=== PATIENT | male | born 1985 | race Caucasian/White ===

== ENCOUNTER 2016-08-15 17:26 | Emergency (ER) | payer SELFPAY ==
[2016-08-15] MEDS ORDERED: DIPH/PERTUSS(ACELL)/TETANUS VAC/PF 0.5 ML SYR (>=10YO) IM ONE (18:04)
[2016-08-15] MEDS ORDERED: NAPROXEN 250 MG TABLET PO ONE (18:05)
[2016-08-15] MEDS ORDERED: CYCLOBENZAPRINE HCL 10 MG TABLET PO ONE (18:05)
--- NOTE | 2016-08-15 18:08 | ER Document Report ---
ED Medical Screen (RME) - General Chief Complaint: Back Injury Stated Complaint: BACK PAIN,FINGER INJURY Notes: I briefly seen and evaluated this patient in my role as physician in triage. I have initiated orders based on this initial evaluation. Please see my colleague' s documentation for complete history, physical, management, diagnosis, and ultimate disposition. My brief evaluation: Patient presents to stating that he was helping a friend lift an I-beam and his friend dropped the other and and he went down he jerked his back and indicates caught his finger between the cement and the 100 pound I-beam. Patient indicates that the bleeding was squirting at intervals and he put direct pressure on it. He was able to control it with pressure. Patient is here also for his low back which is now hurting after the injury. He is able to walk. Denies any radiation of pain into the legs. No bowel or bladder dysfunction. On exam, patient alert and oriented no acute distress vital signs are stable patient is afebrile nontoxic appearing. The left index finger has a laceration on the palmar aspect that is irregular and there is a small arterial bleeding that pumps blood once dressing is removed. Dressing was replaced and pressure applied to control bleeding. Medical decision making: Patient will have an x-ray to evaluate for possible open fracture. Further exam of ring finger is necessary as well as neuro vascular exam. Have given Naprosyn and Flexeril for back TRAVEL OUTSIDE OF THE [place] IN LAST 30 DAYS: No - Related Data Allergies/Adverse Reactions: duloxetine HCl [From Cymbalta] Allergy (Verified 03/19/16 18:01) Past Medical History - Past Medical History Cardiac Medical History: Denies: Hx Coronary Artery Disease, Hx Heart Attack, Hx Hypertension Pulmonary Medical History: Reports: Hx Pneumonia - hx of Denies: Hx Asthma, Hx Bronchitis, Hx COPD, Hx Tuberculosis Neurological Medical History: Denies: Hx Cerebrovascular Accident, Hx Seizures Renal/ Medical History: Denies: Hx Peritoneal Dialysis GI Medical History: Musculoskeltal Medical History: Reports Hx Arthritis - mild ankles and knees Psychiatric Medical History: Reports: Hx Anxiety, Hx Attention Deficit Hyperactivity Disorder, Hx Bipolar Disorder, Hx Depression Infectious Medical History: Past Surgical History: Reports: Hx Orthopedic Surgery - Left knee surgery WITH MENISCUS AND ACL REPAIR, right hand surgery. Denies: Hx Pacemaker - Immunizations Immunizations up to date: Yes Hx Diphtheria, Pertussis, Tetanus Vaccination: Yes - 2007 Physical Exam - Vital signs Vitals: Temp Pulse Resp BP Pulse Ox 99.0 F 82 17 133/78 H 98 08/15/16 17:32 08/15/16 17:32 08/15/16 17:32 08/15/16 17:32 08/15/16 17:32 Course - Vital Signs Vital signs: Temp Pulse Resp BP Pulse Ox 99.0 F 82 17 133/78 H 98 08/15/16 17:32 08/15/16 17:32 08/15/16 17:32 08/15/16 17:32 08/15/16 17:32
[2016-08-15] MEDS ORDERED: OXYCODONE-ACETAMINOPHEN 5-325 MG TABLET PO ONE (18:35)
[2016-08-15] MEDS ORDERED: HYDROCODONE/ACETAMINOPHEN 5-325 MG 6 TAB/DSPK PO PRN (19:37)
--- NOTE | 2016-08-15 19:38 | ER Document Report ---
ED General - General Chief Complaint: Back Injury Stated Complaint: BACK PAIN,FINGER INJURY Mode of Arrival: Ambulatory Information source: Patient Notes: 31-year-old male presents with complaints of back pain and finger injury just prior to arrival. Patient was lifting a heavy beam with another person, that person let go of the pain and the weight was on him, he cannot hold it and let go as well and it landed on his finger. Patient denies any other injuries admits to chronic back pain worsened by this injury TRAVEL OUTSIDE OF THE [place] IN LAST 30 DAYS: No - HPI Onset: Just prior to arrival Onset/Duration: Sudden Quality of pain: Achy Severity: Mild Pain Level: 2 Associated symptoms: Body/muscle aches Exacerbated by: Denies Relieved by: Denies Similar symptoms previously: Yes Recently seen / treated by doctor: No - Related Data Allergies/Adverse Reactions: duloxetine HCl [From Cymbalta] Allergy (Verified 03/19/16 18:01) Past Medical History - Social History Smoking Status: Current Every Day Smoker Cigarette use (# per day): Yes Chew tobacco use (# tins/day): No - 30 Smoking Education Provided: No Frequency of alcohol use: None Drug Abuse: None Family History: None Patient has suicidal ideation: No Patient has homicidal ideation: No - Past Medical History Cardiac Medical History: Denies: Hx Coronary Artery Disease, Hx Heart Attack, Hx Hypertension Pulmonary Medical History: Reports: Hx Pneumonia - hx of Denies: Hx Asthma, Hx Bronchitis, Hx COPD, Hx Tuberculosis Neurological Medical History: Denies: Hx Cerebrovascular Accident, Hx Seizures Renal/ Medical History: Denies: Hx Peritoneal Dialysis GI Medical History: Musculoskeltal Medical History: Reports Hx Arthritis - mild ankles and knees Psychiatric Medical History: Reports: Hx Anxiety, Hx Attention Deficit Hyperactivity Disorder, Hx Bipolar Disorder, Hx Depression Infectious Medical History: Past Surgical History: Reports: Hx Orthopedic Surgery - Left knee surgery WITH MENISCUS AND ACL REPAIR, right hand surgery. Denies: Hx Pacemaker - Immunizations Immunizations up to date: Yes Hx Diphtheria, Pertussis, Tetanus Vaccination: Yes - 2007 Review of Systems - Review of Systems Notes: REVIEW OF SYSTEMS: CONSTITUTIONAL : Denies fever, chills, or sweats. Denies recent illness. EENT: Denies eye, ear, throat, or mouth pain or symptoms. Denies nasal or sinus congestion or discharge. Denies throat, tongue, or mouth swelling or difficulty swallowing. CARDIOVASCULAR: Denies chest pain. Denies palpitations or racing or irregular heart beat. Denies ankle edema. RESPIRATORY: Denies cough, cold, or chest congestion. Denies shortness of breath, difficulty breathing, or wheezing. GASTROINTESTINAL: Denies abdominal pain or distention. Denies nausea, vomiting , or diarrhea. Denies blood in vomitus, stools, or per rectum. Denies black, tarry stools. Denies constipation. GENITOURINARY: Denies difficulty urinating, painful urination, burning, frequency, blood in urine, or discharge. MUSCULOSKELETAL: admits ot low back pain, left hand 4th digit pain SKIN: Denies rash, lesions or sores. HEMATOLOGIC : Denies easy bruising or bleeding. LYMPHATIC: Denies swollen, enlarged glands. NEUROLOGICAL: Denies confusion or altered mental status. Denies passing out or loss of consciousness. Denies dizziness or lightheadedness. Denies headache. Denies weakness or paralysis or loss of use of either side. Denies problems with gait or speech. Denies sensory loss, numbness, or tingling. Denies seizures. PSYCHIATRIC: Denies anxiety or stress. Denies depression, suicidal ideation, or homicidal ideation. ALL OTHER SYSTEMS REVIEWED AND NEGATIVE. Dictation was performed using [employer] English voice recognition software PHYSICAL EXAMINATION: GENERAL: Well-appearing, well-nourished and in no acute distress. HEAD: Atraumatic, normocephalic. EYES: Pupils equal round and reactive to light, extraocular movements intact, sclera anicteric, conjunctiva are normal. ENT: Nares patent, oropharynx clear without exudates. Moist mucous membranes. NECK: Normal range of motion, supple without lymphadenopathy LUNGS: Breath sounds clear to auscultation bilaterally and equal. No wheezes rales or rhonchi. HEART: Regular rate and rhythm without murmurs ABDOMEN: Soft, nontender, nondistended abdomen. No guarding, no rebound. No masses appreciated. Musculoskeletal: mild lumbar tenderness midline, no step off or deformity. echymosis with dried blood under the left hand 4th digit nail bed. NEUROLOGICAL: Cranial nerves grossly intact. Normal speech, normal gait. Normal sensory, motor exams PSYCH: Normal mood, normal affect. SKIN: Warm, Dry, normal turgor, no rashes or lesions noted. Physical Exam - Vital signs Vitals: Temp Pulse Resp BP Pulse Ox 99.0 F 82 17 133/78 H 98 08/15/16 17:32 08/15/16 17:32 08/15/16 17:32 08/15/16 17:32 08/15/16 17:32 Course - Re-evaluation Re-evalutation: 08/15/16 22:32 X-rays consistent with a tuft fracture of the fourth digit left hand, otherwise no acute abnormalities except for a nail bed injury. The nail is over and did stable at this time therefore I will not remove the nail. There is a superficial abrasion on the palmar aspect of the finger which I offered to repair but the patient wishes to defer at this time. Very strict return precautions have been provided to the patient as well as wound care instructions. CT was performed of the lumbar spine abnormality was noted. Patient has no neurological deficits consistent with cauda equina syndrome. Patient will be discharged home with pain medication close follow-up tetanus was updated After performing a Medical Screening Examination, I estimate there is LOW risk for INTRACRANIAL HEMORRHAGE, UNSTABLE SPINE FRACTURE, CENTRAL CORD SYNDROME, CAUDA EQUINA, THORACIC AORTIC DISSECTION, PNEUMOTHORAX, PERFORATED BOWEL, RUPTURED ABDOMINAL AORTIC ANEURYSM, ACUTE TENDON RUPTURE, COMPARTMENT SYNDROME, or OPEN FRACTURE, thus I consider the discharge disposition reasonable. Also, there is no evidence or peritonitis, sepsis, or toxicity. I have reevaluated this patient multiple times and no significant life threatening changes are noted. The patient and I have discussed the diagnosis and risks, and we agree with discharging home to follow-up with their primary doctor with the understanding that symptoms and presentations can change. We also discussed returning to the Emergency Department immediately if new or worsening symptoms occur. We have discussed the symptoms which are most concerning (e.g., bloody stool, fever, changing or worsening pain, vomiting) that necessitate immediate return. - Vital Signs Vital signs: Temp Pulse Resp BP Pulse Ox 99.0 F 77 18 125/77 100 08/15/16 17:32 08/15/16 19:52 08/15/16 19:52 08/15/16 19:52 08/15/16 19:52 - Diagnostic Test Radiology reviewed: Image reviewed, Reports reviewed Discharge - Discharge Clinical Impression: Nailbed injury Closed fracture of tuft of distal phalanx of finger Qualifiers: Encounter type: initial encounter Qualified Code(s): S62.639A - Displaced fracture of distal phalanx of unspecified finger, initial encounter for closed fracture Low back strain Qualifiers: Encounter type: initial encounter Qualified Code(s): S39.012A - Strain of muscle, fascia and tendon of lower back, initial encounter Condition: Stable Disposition: HOME, SELF-CARE Additional Instructions: Return immediately if there is any sign of infection or any neurological deficits Prescriptions: Oxycodone HCl/Acetaminophen [Percocet 5-325 mg Tablet] 1 - 2 tab PO Q4H PRN #15 tablet PRN Reason: Forms: Return to Work Referrals: [facility] [Primary Care Provider] - Follow up in 3-5 days
[2016-08-15 19:53] VITALS: BP 125/77
== END 2016-08-15 19:53 | disposition home or self-care (01) ==
LOC: ER 17:26
DX: S39.012A Strain of muscle, fascia and tendon of lower back, initial encounter (principal); S62.639A Displaced fracture of distal phalanx of unspecified finger, initial encounter for closed fracture; S69.92XA Unspecified injury of left wrist, hand and finger(s), initial encounter; M79.1 Myalgia; W22.8XXA Striking against or struck by other objects, initial encounter; F17.210 Nicotine dependence, cigarettes, uncomplicated; Z23 Encounter for immunization
CPT/HCPCS: 72131; 90471; 90715; 99284

== ENCOUNTER 2016-11-08 12:18 | Emergency (ER) | payer SELFPAY ==
[2016-11-08] MEDS ORDERED: DEXAMETHASONE SOD PHOS INJ 10 MG/1 ML VIAL IM ONE (12:48)
--- NOTE | 2016-11-08 12:51 | ER Document Report ---
HPI - HPI Pain Level: 4 Notes: Patient is a 31-year-old male who presents to the ED complaining of left knee pain 3 weeks status post injury reported to be hyperextension. Patient states that he has had chronic issues with his left knee as well and he has had 2 previous arthroscopic surgeries. Patient states that because of his left knee pain he reaggravated his low back pain left greater than the right side. Patient states that his back problems and occasional sharp pains without any numbness or tingling. The pain does not radiate any other places. He has been using [id number] meds with minimal relief. Patient states that he has been working extra shifts lately and he works as a cook and standing during each shift. Standing makes the pain worse. Patient is not sure of any other position that improves his symptoms. Denies any loss of control of bowel or bladder. Patient still eating and drink without any problems. Patient smokes cigarettes daily. Denies any other illicit drug use. And states he has allergies to Cymbalta and Vicodin. He does not have a PCM. No other significant past medical history per patient. Denies any fever, URI, sore throat, cp, palp, syncope, cough, wheeze, sob, dyspnea, abd pain, n/v/d/c, dysuria, urinary retention, hematuria, muscle weakness/paralysis, or rash. - ROS Notes: REVIEW OF SYSTEMS: CONSTITUTIONAL : Denies fever, chills, or sweats. Denies recent illness. EENT: Denies eye, ear, throat, or mouth pain or symptoms. Denies nasal or sinus congestion or discharge. Denies throat, tongue, or mouth swelling or difficulty swallowing. CARDIOVASCULAR: Denies chest pain. Denies palpitations or racing or irregular heart beat. Denies ankle edema. RESPIRATORY: Denies cough, cold, or chest congestion. Denies shortness of breath, difficulty breathing, or wheezing. GASTROINTESTINAL: Denies abdominal pain or distention. Denies nausea, vomiting , or diarrhea. Denies blood in vomitus, stools, or per rectum. Denies black, tarry stools. Denies constipation. GENITOURINARY: Denies difficulty urinating, painful urination, burning, frequency, blood in urine, or discharge. MUSCULOSKELETAL: Denies back or neck pain or stiffness. Denies joint pain or swelling. SKIN: Denies rash, lesions or sores. NEUROLOGICAL: Denies confusion or altered mental status. Denies passing out or loss of consciousness. Denies dizziness or lightheadedness. Denies headache. Denies weakness or paralysis or loss of use of either side. Denies problems with gait or speech. Denies sensory loss, numbness, or tingling. Denies seizures. ALL OTHER SYSTEMS REVIEWED AND NEGATIVE. Dictation was performed using [employer] voice recognition software - REPRODUCTIVE Reproductive: DENIES: : - DERM Skin Color: Normal Past Medical History - Social History Smoking Status: Current Every Day Smoker Family History: None Patient has suicidal ideation: No Patient has homicidal ideation: No - Past Medical History Cardiac Medical History: Denies: Hx Coronary Artery Disease, Hx Heart Attack, Hx Hypertension Pulmonary Medical History: Reports: Hx Pneumonia - hx of Denies: Hx Asthma, Hx Bronchitis, Hx COPD, Hx Tuberculosis Neurological Medical History: Denies: Hx Cerebrovascular Accident, Hx Seizures Renal/ Medical History: Denies: Hx Peritoneal Dialysis GI Medical History: Musculoskeltal Medical History: Reports Hx Arthritis - mild ankles and knees Psychiatric Medical History: Reports: Hx Anxiety, Hx Attention Deficit Hyperactivity Disorder, Hx Bipolar Disorder, Hx Depression Infectious Medical History: Past Surgical History: Reports: Hx Orthopedic Surgery - Left knee surgery WITH MENISCUS AND ACL REPAIR, right hand surgery. Denies: Hx Pacemaker - Immunizations Immunizations up to date: Yes Hx Diphtheria, Pertussis, Tetanus Vaccination: Yes - 2007 [facility] Provider Document - CONSTITUTIONAL Notes: PHYSICAL EXAMINATION: GENERAL: Well-appearing, well-nourished and in no acute distress. NECK: Normal range of motion, supple without lymphadenopathy. No rigidity. LUNGS: Breath sounds clear to auscultation bilaterally and equal. No wheezes rales or rhonchi. HEART: Regular rate and rhythm without murmurs, rubs, gallops. ABDOMEN: Soft, nontender, nondistended abdomen. No guarding, no rebound. No masses appreciated. Normal bowel sounds present. No CVA tenderness bilaterally. No pulsatile mass. Musculoskeletal: LE's b/l: FROM to passive/active. Strength 5+/5. SLR negative b/l. Knee: No ecchymosis, abrasion laceration, swelling, or deformity noted. + mild tenderness to patellar tendon. neg apprehension, grind, [place]. Ligamentous stable. Extremities: No cyanosis, clubbing, or edema b/l. Peripheral pulses 2+. Capillary refill less than 3 seconds. NEUROLOGICAL: Normal gait. Normal sensory, motor exams. PSYCH: Normal mood, normal affect. SKIN: Warm, Dry, normal turgor, no rashes or lesions noted. - INFECTION CONTROL TRAVEL OUTSIDE OF THE [place] IN LAST 30 DAYS: No - RESPIRATORY O2 Sat by Pulse Oximetry: 96 Course - Re-evaluation Re-evalutation: 11/08/16 13:45 Patient is an afebrile, well-hydrated, 31-year-old male presents the ED complaining of acute on chronic left knee pain and chronic low back pain, suspect possible patellar tendonitis/bursitis. Knee XR negative. Vitals are stable. PE otherwise unremarkable for any focal neurological deficits. Low health risk factors for any emergent/urgent back pain. Low suspicion for any AAA, cauda equina, epidural mass lesion, severe disk herniation causing spinal stenosis based on H&P today. Decadron 10mg given IM today. Lidoderm patch placed today. I will send him home with a script for voltaren gel. Conservative measures otherwise for symptoms. Establish/recheck with PCM in 2- 3 days. Return to the ED with any worsening/concerning symptoms otherwise as reviewed. electric utility lineworker consult placed to help patient with PCM and insurance issues. Patient is in agreement. - Vital Signs Vital signs: Temp Pulse Resp BP Pulse Ox 98.4 F 93 14 122/79 96 11/08/16 12:23 11/08/16 12:23 11/08/16 12:23 11/08/16 12:23 11/08/16 12:23 Discharge - Discharge Clinical Impression: Left knee pain Qualifiers: Chronicity: unspecified Qualified Code(s): M25.562 - Pain in left knee Chronic low back pain Qualifiers: Back pain laterality: left Sciatica presence: without sciatica Qualified Code(s ): M54.5 - Low back pain Condition: Stable Disposition: HOME, SELF-CARE Instructions: Ice Packs ([facility]), Warm Packs ([facility]), Low Back Pain ([facility]), Muscle Strain ([facility]) Additional Instructions: Rest, Ice, Compression, Elevation Tylenol/ibuprofen as needed Light stretches daily Use medication as directed Strength exercises as able Moist heat and massage may help F/u with your PCP/establish in 2-3 days for a recheck Consider consult(s) with Orthopedics, physical therapy, pain management, chiropractics for ongoing/worsening symptoms Return to the ED with any worsening symptoms and/or development of fever, headache, chest pain, palpitations, syncope, shortness of breath, trouble breathing, abdominal pain, n/v/d, blood in stool/urine, urinary retention, muscle weakness/paralysis, or other worsening symptoms that are concerning to you. Prescriptions: Diclofenac Sodium [Voltaren] 4 gm TP QID PRN #100 gel..gm. PRN Reason: Forms: Return to Work
[2016-11-08] MEDS ORDERED: LIDOCAINE 5% (700 MG) TRANSDERMAL ADH..PATCH TP ONE (13:00)
[2016-11-08] MEDS ORDERED: KETOROLAC TROMETHAMINE INJ/PF 30 MG/1 ML SDV IM ONE (13:15)
--- NOTE | 2016-11-08 13:31 | RADIOLOGY REPORT (SQ) ---
EXAM DESCRIPTION: KNEE LEFT 4 VIEW COMPLETED DATE/TIME: 11/08/2016 1:08 pm REASON FOR STUDY: left knee pain COMPARISON: None. NUMBER OF VIEWS: Four views. TECHNIQUE: AP, lateral, and both oblique radiographic images acquired of the left knee. LIMITATIONS: None. FINDINGS: MINERALIZATION: Normal. BONES: No acute fracture or dislocation. No worrisome bone lesions. Postsurgical changes are identi fied related to an ACL repair. JOINT: No effusion. SOFT TISSUES: No soft tissue swelling. No radio-opaque foreign body. OTHER: No other significant finding. IMPRESSION: NO RADIOGRAPHIC EVIDENCE OF ACUTE INJURY. Other findings as noted above. TECHNICAL DOCUMENTATION: JOB ID: [id number] [employer]- All Rights Reserved
[2016-11-08 13:54] VITALS: BP 112/68
== END 2016-11-08 13:54 | disposition home or self-care (01) ==
LOC: ER 12:18
DX: M25.562 Pain in left knee (principal); M54.5 Low back pain; G89.29 Other chronic pain; Z98.890 Other specified postprocedural states; F17.210 Nicotine dependence, cigarettes, uncomplicated; Z88.5 Allergy status to narcotic agent; Z88.6 Allergy status to analgesic agent
CPT/HCPCS: 99283; 96372; 73562; J1885; J1100

== ENCOUNTER 2017-06-14 17:50 | Emergency (ER) | payer SELFPAY ==
--- NOTE | 2017-06-14 18:10 | ER Document Report ---
HPI - HPI Patient complains to provider of: Headache, runny nose, nausea and vomiting Onset: Last week Onset/Duration: Persistent Pain Level: 4 Context: 31-year-old male complaining of a dual onset throbbing frontal migraine headache , runny nose, nausea and vomiting, with chills and sweats this week, generalized bodyaches, dizzy, was in bed for 2 days. He states he is under a lot of stress. No chest pain or shortness of breath. No abdominal pain. No diarrhea. No rash. No travel outside us, no tick bite. Associated Symptoms: None Exacerbated by: Other - light, sound Similar symptoms previously: Yes Recently seen / treated by doctor: No - ROS ROS below otherwise negative: Yes Systems Reviewed and Negative: Yes All other systems reviewed and negative - REPRODUCTIVE Reproductive: DENIES: : Past Medical History - General Information source: Patient - Social History Smoking Status: Current Every Day Smoker Frequency of alcohol use: None Drug Abuse: Marijuana Lives with: Family Family History: None - Past Medical History Cardiac Medical History: Reports: Hx Coronary Artery Disease, Hx Heart Attack, Hx Hypercholesterolemia, Hx Hypertension Pulmonary Medical History: Reports: Hx Pneumonia - hx of Neurological Medical History: Reports: Hx Migraine Renal/ Medical History: Denies: Hx Peritoneal Dialysis GI Medical History: Musculoskeltal Medical History: Reports Hx Arthritis - mild ankles and knees Psychiatric Medical History: Reports: Hx Anxiety, Hx Attention Deficit Hyperactivity Disorder, Hx Bipolar Disorder, Hx Depression Infectious Medical History: Past Surgical History: Reports: Hx Orthopedic Surgery - Left knee surgery WITH MENISCUS AND ACL REPAIR, right hand surgery - Immunizations Immunizations up to date: Yes Hx Diphtheria, Pertussis, Tetanus Vaccination: Yes - 2007 [employer] Provider Document - CONSTITUTIONAL Agree With Documented VS: Yes Exam Limitations: No Limitations - INFECTION CONTROL TRAVEL OUTSIDE OF THE [place] IN LAST 30 DAYS: No - HEENT HEENT: PERRLA, Pharyngeal Erythema - mild. negative: Conjuctival Injection, Tympanic Membrane Red, Tympanic Membrane Bulging - NECK Neck: Supple. negative: Lymphadenopathy-Left, Lymphadenopathy-Right - RESPIRATORY Respiratory: Breath Sounds Normal, No Respiratory Distress O2 Sat by Pulse Oximetry: 97 - CARDIOVASCULAR Cardiovascular: Regular Rate, Regular Rhythm - GI/ABDOMEN Gastrointestinal: Abdomen Soft, Abdomen Non-Tender, No Organomegaly, Normal Bowel Sounds - BACK Back: Normal Inspection - MUSCULOSKELETAL/EXTREMETIES Musculoskeletal/Extremeties: JOHANNA BARRIOS - NEURO Level of Consciousness: Awake, Alert, Appropriate - DERM Integumentary: Warm, Dry, No Rash Course - Re-evaluation Re-evalutation: 06/14/17 19:35 Headache is down to level 3 and he has had 2 L of fluid, no vomiting while in the emergency room. He does states that he has been under a lot of stress recently. 06/14/17 19:47 headache down to 2.5, can get ride home. Feels better but still a little dizzy. - Vital Signs Vital signs: Temp Pulse Resp BP Pulse Ox 98.9 F 86 18 140/76 H 97 06/14/17 18:02 06/14/17 18:02 06/14/17 18:02 06/14/17 18:02 06/14/17 18:02 Discharge - Discharge Clinical Impression: Myalgia Headache Qualifiers: Headache type: unspecified Headache chronicity pattern: acute headache Intractability: not intractable Qualified Code(s): R51 - Headache Nausea & vomiting Qualifiers: Vomiting type: unspecified Vomiting Intractability: non-intractable Qualified Code(s): R11.2 - Nausea with vomiting, unspecified Arthralgia Qualifiers: Joint pain location: unspecified Qualified Code(s): M25.50 - Pain in unspecified joint Condition: Good Disposition: HOME, SELF-CARE Instructions: Vomiting ([facility]), Intravenous (IV) Fluids ([facility]), Acetaminophen, Headache ([facility]), Intravenous Compazine for Headaches ([facility]), Use of Diphenhydramine Additional Instructions: see your doctor if the symptoms persist Return to the emergency room if symptoms worsen Tylenol Rest Plenty of fluids [id number] Motrin Forms: Return to Work
[2017-06-14] MEDS ORDERED: PROCHLORPERAZINE EDISYLATE INJ 10 MG/2 ML VIAL IM ONE (18:28)
[2017-06-14] MEDS ORDERED: NORMAL SALINE 1000 ML 2,000 ML IV ONE (18:28)
[2017-06-14] MEDS ORDERED: DIPHENHYDRAMINE HCL 50 MG/ML VIAL IV ONE (18:28)
[2017-06-14] MEDS ORDERED: KETOROLAC TROMETHAMINE INJ/PF 30 MG/1 ML SDV IV ONE (18:28)
[2017-06-14 20:04] VITALS: BP 113/68
== END 2017-06-14 20:05 | disposition home or self-care (01) ==
LOC: ER 17:50
DX: G43.909 Migraine, unspecified, not intractable, without status migrainosus (principal); R11.2 Nausea with vomiting, unspecified; M79.1 Myalgia; M25.50 Pain in unspecified joint; R09.89 Other specified symptoms and signs involving the circulatory and respiratory systems; R61 Generalized hyperhidrosis; R68.83 Chills (without fever); R42 Dizziness and giddiness; F17.200 Nicotine dependence, unspecified, uncomplicated; I25.10 Atherosclerotic heart disease of native coronary artery without angina pectoris; I10 Essential (primary) hypertension; I25.2 Old myocardial infarction; Z87.01 Personal history of pneumonia (recurrent)
CPT/HCPCS: 99284; 96361; 96374; 96375; J1200; J1885; J0780; J7030

== ENCOUNTER 2017-06-17 08:52 | Emergency (ER) | payer SELFPAY ==
--- NOTE | 2017-06-17 10:23 | ER Document Report ---
ED General - General Chief Complaint: Pain All Over Stated Complaint: HEADACHE,VOMITING Time Seen by Provider: 06/17/17 10:12 Mode of Arrival: Ambulatory Information source: Patient Notes: Patient was recently here and diagnosed with a viral syndrome. He states he continues to have cough sore throat, body aches, headache, insomnia. No fevers. Cough is occasionally productive of some yellow-green sputum. Symptoms are worse with exertion and better with rest. They are moderate. They are intermittent. Body aches radiate throughout his body. TRAVEL OUTSIDE OF THE [place] IN LAST 30 DAYS: No - Related Data Allergies/Adverse Reactions: duloxetine HCl [From Cymbalta] Allergy (Verified 06/17/17 08:54) Past Medical History - Social History Smoking Status: Current Every Day Smoker Chew tobacco use (# tins/day): No Frequency of alcohol use: Occasional Drug Abuse: Marijuana Family History: None Patient has suicidal ideation: No Patient has homicidal ideation: No - Past Medical History Cardiac Medical History: Reports: Hx Coronary Artery Disease, Hx Heart Attack, Hx Hypercholesterolemia, Hx Hypertension Pulmonary Medical History: Reports: Hx Pneumonia - hx of Denies: Hx Asthma, Hx Bronchitis, Hx COPD, Hx Tuberculosis Neurological Medical History: Reports: Hx Migraine. Denies: Hx Cerebrovascular Accident, Hx Seizures Renal/ Medical History: Denies: Hx Peritoneal Dialysis GI Medical History: Musculoskeltal Medical History: Reports Hx Arthritis - mild ankles and knees Psychiatric Medical History: Reports: Hx Anxiety, Hx Attention Deficit Hyperactivity Disorder, Hx Bipolar Disorder, Hx Depression Infectious Medical History: Past Surgical History: Reports: Hx Orthopedic Surgery - Left knee surgery WITH MENISCUS AND ACL REPAIR, right hand surgery. Denies: Hx Pacemaker - Immunizations Immunizations up to date: Yes Hx Diphtheria, Pertussis, Tetanus Vaccination: Yes - 2007 Review of Systems - Review of Systems Constitutional: Malaise, Weakness EENT: Nose congestion, Nose discharge Respiratory: Cough. denies: Short of breath Physical Exam - Vital signs Vitals: Temp Pulse Resp BP Pulse Ox 98.7 F 77 16 136/78 H 100 06/17/17 08:59 06/17/17 08:59 06/17/17 08:59 06/17/17 08:59 06/17/17 08:59 Interpretation: Normal - General General appearance: Appears well, Alert - HEENT Head: Normocephalic, Atraumatic Eyes: Normal Pupils: PERRL - Respiratory Respiratory status: No respiratory distress Chest status: Nontender Breath sounds: Normal Chest palpation: Normal - Cardiovascular Rhythm: Regular Heart sounds: Normal auscultation Murmur: No - Abdominal Inspection: Normal Distension: No distension Bowel sounds: Normal Tenderness: Nontender Organomegaly: No organomegaly - Back Back: Normal, Nontender - Extremities General upper extremity: Normal inspection, Nontender, Normal color, Normal ROM , Normal temperature General lower extremity: Normal inspection, Nontender, Normal color, Normal ROM , Normal temperature, Normal weight bearing. No: Gavin's sign - Neurological Neuro grossly intact: Yes Cognition: Normal Orientation: AAOx4 [place]asper Coma Scale Eye Opening: Spontaneous Kandy Coma Scale Verbal: Oriented Kandy Coma Scale Motor: Obeys Commands Kandy Coma Scale Total: 15 Speech: Normal Motor strength normal: LUE, RUE, LLE, RLE Sensory: Normal - Psychological Associated symptoms: Normal affect, Normal mood - Skin Skin Temperature: Warm Skin Moisture: Dry Skin Color: Normal Course - Vital Signs Vital signs: Temp Pulse Resp BP Pulse Ox 98.7 F 77 16 136/78 H 100 06/17/17 08:59 06/17/17 08:59 06/17/17 08:59 06/17/17 08:59 06/17/17 08:59 Discharge - Discharge Clinical Impression: Viral syndrome Condition: Stable Disposition: HOME, SELF-CARE Instructions: Viral Syndrome ([facility]) Additional Instructions: most viral syndromes are contagious for seven days so it is recommended you take contact precautions for seven days from first day of illness Prescriptions: Codeine/Promethazine HCl [Promethazine-Codeine Syrup] 10 ml PO Q4 PRN 3 Days #1 bottle PRN Reason: Forms: Return to Work
[2017-06-17 10:34] VITALS: BP 135/75
== END 2017-06-17 10:34 | disposition home or self-care (01) ==
LOC: ER 08:52
DX: B34.9 Viral infection, unspecified (principal); M79.1 Myalgia; R53.81 Other malaise; F17.200 Nicotine dependence, unspecified, uncomplicated; I25.10 Atherosclerotic heart disease of native coronary artery without angina pectoris; E78.00 Pure hypercholesterolemia, unspecified; I10 Essential (primary) hypertension; I25.2 Old myocardial infarction
CPT/HCPCS: 99284

== ENCOUNTER 2017-10-03 11:51 | Emergency (ER) | payer MEDICAID ==
[2017-10-03] MEDS ORDERED: KETOROLAC TROMETHAMINE INJ/PF 30 MG/1 ML SDV IV ONE (12:06)
[2017-10-03] MEDS ORDERED: NORMAL SALINE 1000 ML 1,000 ML IV ONE (12:06)
[2017-10-03] MEDS ORDERED: PROCHLORPERAZINE EDISYLATE INJ 10 MG/2 ML VIAL IV ONE (12:06)
[2017-10-03] MEDS ORDERED: DIPHENHYDRAMINE HCL 50 MG/ML VIAL IV ONE (12:06)
--- NOTE | 2017-10-03 12:10 | ER Document Report ---
ED General - General Chief Complaint: Headache Stated Complaint: HEADACHE,VOMITING Time Seen by Provider: 10/03/17 12:02 Mode of Arrival: Ambulatory Information source: Patient Notes: 32-year-old male history of migraine headaches presents with complaints of a migraine headache, he states this is similar to his previous migraines, notes he was here about 4 months ago with similar complaints, he denies any fevers or chills denies any trauma, he believes stress is causing his symptoms and that he has been vomiting with these episodes. Patient does not have a neurologist, notes that his left and that he is taking care of her 3 sons by himself TRAVEL OUTSIDE OF THE [place] IN LAST 30 DAYS: No - HPI Onset: Other - 3 day duration Onset/Duration: Persistent Quality of pain: Achy Severity: Mild Pain Level: 1 Associated symptoms: Headache, Nausea, Vomiting Exacerbated by: Other - Stress Relieved by: Denies Similar symptoms previously: Yes Recently seen / treated by doctor: Yes - Related Data Allergies/Adverse Reactions: duloxetine HCl [From Cymbalta] Allergy (Verified 10/03/17 12:06) Past Medical History - Social History Smoking Status: Current Every Day Smoker Cigarette use (# per day): Yes Chew tobacco use (# tins/day): No Smoking Education Provided: No Frequency of alcohol use: Rare Drug Abuse: None Family History: None Patient has suicidal ideation: No Patient has homicidal ideation: No - Past Medical History Cardiac Medical History: Reports: Hx Coronary Artery Disease, Hx Heart Attack, Hx Hypercholesterolemia, Hx Hypertension Pulmonary Medical History: Reports: Hx Pneumonia - hx of Denies: Hx Asthma, Hx Bronchitis, Hx COPD, Hx Tuberculosis Neurological Medical History: Reports: Hx Migraine. Denies: Hx Cerebrovascular Accident, Hx Seizures Renal/ Medical History: Denies: Hx Peritoneal Dialysis GI Medical History: Musculoskeltal Medical History: Reports Hx Arthritis - mild ankles and knees Psychiatric Medical History: Reports: Hx Anxiety, Hx Attention Deficit Hyperactivity Disorder, Hx Bipolar Disorder, Hx Depression Infectious Medical History: Past Surgical History: Reports: Hx Orthopedic Surgery - Left knee surgery WITH MENISCUS AND ACL REPAIR, right hand surgery. Denies: Hx Pacemaker - Immunizations Immunizations up to date: Yes Hx Diphtheria, Pertussis, Tetanus Vaccination: Yes - 2007 Review of Systems - Review of Systems Notes: REVIEW OF SYSTEMS: CONSTITUTIONAL : Denies fever, chills, or sweats. Denies recent illness. EENT: Denies eye, ear, throat, or mouth pain or symptoms. Denies nasal or sinus congestion or discharge. Denies throat, tongue, or mouth swelling or difficulty swallowing. CARDIOVASCULAR: Denies chest pain. Denies palpitations or racing or irregular heart beat. Denies ankle edema. RESPIRATORY: Denies cough, cold, or chest congestion. Denies shortness of breath, difficulty breathing, or wheezing. GASTROINTESTINAL: Admits nausea vomiting GENITOURINARY: Denies difficulty urinating, painful urination, burning, frequency, blood in urine, or discharge. MUSCULOSKELETAL: Denies back or neck pain or stiffness. Denies joint pain or swelling. SKIN: Denies rash, lesions or sores. HEMATOLOGIC : Denies easy bruising or bleeding. LYMPHATIC: Denies swollen, enlarged glands. NEUROLOGICAL: Admits to headache PSYCHIATRIC: Denies anxiety or stress. Denies depression, suicidal ideation, or homicidal ideation. ALL OTHER SYSTEMS REVIEWED AND NEGATIVE. Dictation was performed using makemoji voice recognition software PHYSICAL EXAMINATION: GENERAL: Well-appearing, well-nourished and in no acute distress. HEAD: Atraumatic, normocephalic. EYES: Pupils equal round and reactive to light, extraocular movements intact, sclera anicteric, conjunctiva are normal. ENT: Nares patent, oropharynx clear without exudates. Moist mucous membranes. NECK: Normal range of motion, supple without lymphadenopathy LUNGS: Breath sounds clear to auscultation bilaterally and equal. No wheezes rales or rhonchi. HEART: Regular rate and rhythm without murmurs ABDOMEN: Soft, nontender, nondistended abdomen. No guarding, no rebound. No masses appreciated. Musculoskeletal: Normal range of motion, no pitting or edema. No cyanosis. NEUROLOGICAL: Cranial nerves grossly intact. Normal speech, normal gait. Normal sensory, motor exams PSYCH: Normal mood, normal affect. SKIN: Warm, Dry, normal turgor, no rashes or lesions noted. Physical Exam - Vital signs Vitals: Temp Pulse Resp BP Pulse Ox 98.7 F 75 16 117/78 97 10/03/17 11:58 10/03/17 11:58 10/03/17 11:58 10/03/17 11:58 10/03/17 11:58 Course - Re-evaluation Re-evalutation: 10/03/17 12:09 Patient is neurologically intact, has no new sudden onset headache, this is an acute exacerbation of his chronic migraines, overall patient will be treated symptomatically and will be given neurology follow-up 10/03/17 13:38 Patient notes headache has since resolved, he will be given neurology follow-up is otherwise stable well-appearing no distress After performing a Medical Screening Examination, I estimate there is LOW risk for ACUTE GLAUCOMA, TEMPORAL ARTERITIS, MENINGITIS, INCRANIAL HEMORRHAGE, or ISCHEMIC STROKE thus I consider the discharge disposition reasonable. I have reevaluated this patient multiple times and no significant life threatening changes are noted. The patient and I have discussed the diagnosis and risks, and we agree with discharging home with close follow-up with the understanding that symptoms and presentations can change. We also discussed returning to the Emergency Department immediately if new or worsening symptoms occur. We have discussed the symptoms which are most concerning (e.g., changing or worsening symptoms, new numbness or weakness, vomiting, fever) that necessitate immediate return. - Vital Signs Vital signs: Temp Pulse Resp BP Pulse Ox 98.7 F 75 16 117/78 97 10/03/17 11:58 10/03/17 11:58 10/03/17 11:58 10/03/17 11:58 10/03/17 11:58 Discharge - Discharge Clinical Impression: Headache Qualifiers: Headache type: other headache syndrome Qualified Code(s): G44.89 - Other headache syndrome Condition: Stable Disposition: HOME, SELF-CARE Instructions: Headache ([facility]) Forms: Return to Work Referrals: ALEXA DESAI MD [NO LOCAL MD] - Follow up tomorrow
[2017-10-03 13:55] VITALS: BP 120/62
== END 2017-10-03 13:55 | disposition home or self-care (01) ==
LOC: ER 11:51
DX: G44.89 Other headache syndrome (principal); R11.2 Nausea with vomiting, unspecified; F17.210 Nicotine dependence, cigarettes, uncomplicated; I25.10 Atherosclerotic heart disease of native coronary artery without angina pectoris; I25.2 Old myocardial infarction; I10 Essential (primary) hypertension; Z88.6 Allergy status to analgesic agent
CPT/HCPCS: 99284; 96361; 96374; 96375; J1200; J1885; J0780; J7030

== ENCOUNTER 2018-05-06 20:18 | Emergency (ER) | payer MEDICAID ==
[2018-05-06] MEDS ORDERED: ATROPINE SULFATE INJ 1 MG/10 ML DISP.SYRIN IV ONE (20:55)
[2018-05-06] MEDS ORDERED: LORAZEPAM INJ 2 MG/1 ML VIAL IV ONE (20:56)
--- NOTE | 2018-05-06 21:02 | ER Document Report ---
ED General - General Chief Complaint: Overdose Stated Complaint: POSSIBLE OVERDOSE Time Seen by Provider: 05/06/18 20:41 TRAVEL OUTSIDE OF THE [place] IN LAST 30 DAYS: No - HPI Notes: Patient is a 32-year-old male that presents to the emergency department for chief complaint of methamphetamine abuse. Patient has a history of polysubstance abuse including methamphetamine, marijuana, ecstasy, Percocet, Adderall and crack cocaine. He states for the last 3 days he stopped taking his medications for anxiety and depression and began "going on a sapp" of methamphetamine. He states this was the first time he had used methamphetamine. He states he does feel very anxious. He reports dry eyes. He states he feels like he is having to remind himself to take a deep breath. He denies any chest pain, fevers, chills, nausea, vomiting and abdominal pain. Patient states he does have a history of suicide ideation in the past but he adamantly denies feeling suicidal now. He states he takes the drugs to "numb myself". He denies any homicidal ideation. Past Medical History: Anxiety, depression Past Surgical History: Negative left ACL and meniscus repair Social History: Daily tobacco, occasional alcohol, abuse of methamphetamine, crack cocaine, Adderall, Percocet, marijuana and ecstasy Family History: Reviewed and noncontributory for presenting illness Allergies: Reviewed, see documented allergy list. REVIEW OF SYSTEMS: CONSTITUTIONAL : No fever No chills No diaphoresis No recent illness EENT: No vision changes Dry eyes No congestion No sore throat CARDIOVASCULAR: No chest pain No palpitations RESPIRATORY: shortness of breath No cough No difficulty breathing GASTROINTESTINAL: No abdominal pain No nausea No vomiting No diarrhea GENITOURINARY: No dysuria No hematuria No difficulty urinating MUSCULOSKELETAL: No back pain No leg pain No arm pain SKIN: No rashes No lesions LYMPHATIC: No swollen, enlarged glands. NEUROLOGICAL: No lightheadedness No headache No weakness No paresthesias PSYCHIATRIC: anxiety No depression PHYSICAL EXAMINATION: Vital signs reviewed, nursing noted reviewed. GENERAL: Well-appearing, well-nourished and in no acute distress. HEAD: Atraumatic, normocephalic. EYES: Eyes appear normal, extraocular movements intact, sclera anicteric, conjunctiva are injected bilaterally. ENT: nares patent, oropharynx clear without exudates. Moist mucous membranes. NECK: Normal range of motion, supple without lymphadenopathy LUNGS: Breath sounds clear to auscultation bilaterally and equal. No wheezes rales or rhonchi. HEART: Regular rate and rhythm without murmurs ABDOMEN: Soft, nontender, normoactive bowel sounds. No rebound, guarding, or rigidity. No masses appreciated. EXTREMITIES: Nontender, good range of motion, no pitting or edema. NEUROLOGICAL: No focal neurological deficits. Moves all extremities spontaneously Motor and sensory grossly intact on exam. PSYCH: Hyperactive, rapid pressured speech, fidgeting. SKIN: Warm, Dry, normal turgor, no rashes or lesions noted on exposed skin - Related Data Allergies/Adverse Reactions: duloxetine HCl [From Cymbalta] Allergy (Verified 10/03/17 12:06) Past Medical History - Social History Smoking Status: Current Every Day Smoker Chew tobacco use (# tins/day): No Frequency of alcohol use: Social Drug Abuse: Cocaine, Methamphetamine Family History: None Patient has suicidal ideation: No Patient has homicidal ideation: No - Past Medical History Cardiac Medical History: Reports: Hx Coronary Artery Disease, Hx Heart Attack, Hx Hypercholesterolemia, Hx Hypertension Pulmonary Medical History: Reports: Hx Pneumonia - hx of Denies: Hx Asthma, Hx Bronchitis, Hx COPD, Hx Tuberculosis Neurological Medical History: Reports: Hx Migraine. Denies: Hx Cerebrovascular Accident, Hx Seizures Renal/ Medical History: Denies: Hx Peritoneal Dialysis GI Medical History: Musculoskeletal Medical History: Reports Hx Arthritis - mild ankles and knees Psychiatric Medical History: Reports: Hx Anxiety, Hx Attention Deficit Hyp eractivity Disorder, Hx Bipolar Disorder, Hx Depression Infectious Medical History: Past Surgical History: Reports: Hx Orthopedic Surgery - Left knee surgery WITH MENISCUS AND ACL REPAIR, right hand surgery. Denies: Hx Pacemaker - Immunizations Immunizations up to date: Yes Hx Diphtheria, Pertussis, Tetanus Vaccination: Yes - 2007 Physical Exam - Vital signs Vitals: Temp Pulse Resp BP Pulse Ox 99.3 F 94 20 134/85 H 94 05/06/18 20:23 05/06/18 20:23 05/06/18 20:23 05/06/18 20:23 05/06/18 20:23 Course - Re-evaluation Re-evalutation: 05/06/18 20:58 Vitals reviewed. Nursing notes reviewed. Patient appears high on methamphetamine and is very anxious and twitching in the room. He was given Ativan for symptomatic management. EKG shows no acute ischemic changes. He is not having any chest pain. Patient's nurse just came over and informed me that after patient's mom left the room he told her that he was trying to commit suicide. He states that he wanted to go to sleep and never wake up again. IVC petition has been filled out. Patient will be medically evaluated with the plan of medical clearance for psych evaluation in the morning. 05/06/18 22:20 Laboratory 05/06/18 05/06/18 05/06/18 20:55 20:55 20:55 WBC 8.2 RBC 5.10 Hgb 15.4 Hct 44.1 MCV 87 MCH 30.3 MCHC 35.0 RDW 13.7 Plt Count 152 Seg Neutrophils % 74.5 Lymphocytes % 15.3 Monocytes % 8.9 Eosinophils % 1.1 Basophils % 0.2 Absolute Neutrophils 6.1 Absolute Lymphocytes 1.3 Absolute Monocytes 0.7 Absolute Eosinophils 0.1 Absolute Basophils 0.0 Sodium 140.3 Potassium 4.2 Chloride 101 Carbon Dioxide 30 Anion Gap 9 BUN 13 Creatinine 0.99 Est GFR ( Amer) > 60 Est GFR (Non-Af Amer) > 60 Glucose 104 Calcium 9.8 Total Bilirubin 1.7 H Direct Bilirubin 0.2 Neonat Total Bilirubin Not Reportable Neonat Direct Bilirubin Not Reportable Neonat Indirect Bili Not Reportable AST 17 ALT 21 Alkaline Phosphatase 52 Troponin I < 0.012 Total Protein 6.8 Albumin 4.6 Salicylates < 1.0 L Acetaminophen < 10 L Serum Alcohol < 10 Patient's lab work is unremarkable. He is now complaining of a headache and was given Tylenol. He is medically cleared for further psych care in the morning when he is more sober. - Vital Signs Vital signs: Temp Pulse Resp BP Pulse Ox 99.6 F 94 17 142/90 H 100 05/06/18 20:55 05/06/18 20:23 05/06/18 21:01 05/06/18 21:01 05/06/18 21:01 - Laboratory Result Diagrams: 05/06/18 20:55 05/06/18 20:55 Laboratory results interpreted by me: 05/06/18 20:55 Total Bilirubin 1.7 H Salicylates < 1.0 L Acetaminophen < 10 L - EKG Interpretation by Me Additional EKG results interpreted by me: 05/06/18 21:00 Interpreted by myself 2045: Normal sinus rhythm, rate 65, normal axis, no ectopy, no ST elevation Discharge - Discharge Clinical Impression: Suicide attempt, Methamphetamine abuse Condition: Stable
[2018-05-06 21:04] LABS: ABSOLUTE EOSINOPHILS # (AUTO) 0.1 10^3/uL (0.0-0.6); ABSOLUTE LYMPHOCYTES (AUTO) 1.3 10^3/uL (0.5-4.7); ABSOLUTE MONOCYTES (AUTO) 0.7 10^3/uL (0.1-1.4); ABSOLUTE NEUT (AUTO) 6.1 10^3/uL (1.7-8.2); BASOPHILS % (AUTO) 0.2 % (0-2); EOSINOPHILS % (AUTO) 1.1 % (0-6); HEMATOCRIT 44.1 % (37.9-51.0); HEMOGLOBIN 15.4 g/dL (13.5-17.0); LYMPHOCYTES % (AUTO) 15.3 % (13-45); MEAN CORPUSCULAR HEMOGLOBIN 30.3 pg (27.0-33.4); MEAN CORPUSCULAR VOLUME 87 fl (80-97); MONOCYTES % (AUTO) 8.9 % (3-13); PLATELET COUNT 152 10^3/uL (150-450); RED CELL DISTRIBUTION WIDTH 13.7 % (11.5-14.0); SEGMENTED NEUTROPHILS % (AUTO) 74.5 % (42-78); TOTAL CELLS COUNTED % (AUTO) 100 %; WHITE BLOOD COUNT 8.2 10^3/uL (4.0-10.5)
[2018-05-06 21:22] LABS: ALANINE AMINOTRANSFERASE 21 U/L (21-72); ALBUMIN 4.6 g/dL (3.5-5.0); ALKALINE PHOSPHATASE 52 U/L (38-126); ANION GAP 9 (5-19); ASPARTATE AMINO TRANSFERASE 17 U/L (17-59); BILIRUBIN,DIRECT 0.2 mg/dL (0.0-0.4); BILIRUBIN,TOTAL 1.7 mg/dL (0.2-1.3); BLOOD UREA NITROGEN 13 mg/dL (7-20); CALCIUM 9.8 mg/dL (8.4-10.2); CARBON DIOXIDE 30 mmol/L (22-30); CHLORIDE 101 mmol/L (98-107); GLUCOSE 104 mg/dL (75-110); POTASSIUM 4.2 mmol/L (3.6-5.0); SODIUM 140.3 mmol/L (137-145); TOTAL PROTEIN 6.8 g/dL (6.3-8.2)
[2018-05-06 21:23] LABS: ACETAMINOPHEN < 10 ug/mL (10-30); ALCOHOL < 10 mg/dL (NONE DETECTED); SALICYLATE < 1.0 mg/dL (2.0-20.0)
[2018-05-06] MEDS ORDERED: LORAZEPAM 1 MG TABLET PO ONE ×2 (21:27→23:25)
[2018-05-06] MEDS ORDERED: ACETAMINOPHEN 325 MG TABLET PO ONE (21:54)
[2018-05-06 22:50] LABS: APPEARANCE,URINE SLIGHTLY-CLOUDY; BILIRUBIN,URINE NEGATIVE (NEGATIVE); GLUCOSE, URINE NEGATIVE (NEGATIVE); KETONES,URINE 20 mg/dL (NEGATIVE); LEUKOCYTE ESTERASE,URINE NEGATIVE (NEGATIVE); NITRITE,URINE NEGATIVE (NEGATIVE); PROTEIN,URINE 30 mg/dL (NEGATIVE)
[2018-05-06 22:54] LABS: COLOR,URINE YELLOW
[2018-05-06 23:08] LABS: URINE BARBITURATES SCREEN NEGATIVE; URINE BENZODIAZEPINES SCREEN NEGATIVE; URINE COCAINE SCREEN UNCONFIRMED POSITIVE; URINE MARIJUANA (THC) SCREEN UNCONFIRMED POSITIVE; URINE METHADONE SCREEN NEGATIVE; URINE PHENCYCLIDINE SCREEN NEGATIVE
[2018-05-06] MEDS ORDERED: TETRAHYDROZOLINE HCL 0.05% OPH SOLN 15 ML OU ONE (23:19)
[2018-05-06] MEDS ORDERED: TETRAHYDROZOLINE HCL 0.05% OPH SOLN 15 ML ONE (23:31)
[2018-05-07] MEDS ORDERED: DIAZEPAM INJ 10 MG/2 ML DISP.SYRIN IV ONE ×4 (00:56→03:47)
[2018-05-07] MEDS ORDERED: NORMAL SALINE 1000 ML 1,000 ML IV ONE (01:14)
[2018-05-07] MEDS ORDERED: DIAZEPAM INJ 10 MG/2 ML DISP.SYRIN ONE (02:25)
[2018-05-07] MEDS ORDERED: NICOTINE 21 MG/24 HR PATCH.TD24 TD ONE (03:49)
--- NOTE | 2018-05-07 08:24 | EKG REPORT ---
SEVERITY:- NORMAL ECG - SINUS RHYTHM : Confirmed by: Jordyn Harley MD 07-May-2018 08:24:21
--- NOTE | 2018-05-07 10:20 | ER Document Report ---
Doctor's Note Notes: 05/07/18 10:18 Rounds: Chart reviewed and patient interviewed. Patient is very anxious and nervous. Says he suffers from anxiety. Last night, patient had to be sedated pharmacologically and restrained. He is walking about his examining room this morning. Drug screens last night were positive for methamphetamine and cocaine and marijuana. Only other labs of note is a bilirubin of 1.7. Vital signs are all essentially normal. Vital signs are all essentially normal. Patient appears to be medically stable for transfer or discharge. Cris Davila MD
[2018-05-07 18:19] VITALS: BP 134/78
== END 2018-05-07 18:19 | disposition home or self-care (01) ==
LOC: ER 20:18
DX: F41.9 Anxiety disorder, unspecified (principal); F15.10 Other stimulant abuse, uncomplicated; F14.10 Cocaine abuse, uncomplicated; R06.02 Shortness of breath; F17.200 Nicotine dependence, unspecified, uncomplicated; I25.10 Atherosclerotic heart disease of native coronary artery without angina pectoris; I25.2 Old myocardial infarction; E78.00 Pure hypercholesterolemia, unspecified; I10 Essential (primary) hypertension; R45.851 Suicidal ideations
CPT/HCPCS: 93005; 99285; 96372; 96360; 36415; 80307 ×4; 82550; 85025; 80053; 81001; 84484; 93010; J3490 ×3; J3360; J7030

== ENCOUNTER 2018-07-29 09:21 | Emergency (ER) | payer MEDICAID, OTHER ==
[2018-07-29] MEDS ORDERED: NORMAL SALINE 1000 ML 1,000 ML IV ONE (09:42)
[2018-07-29] MEDS ORDERED: KETOROLAC TROMETHAMINE INJ/PF 30 MG/1 ML SDV IV ONE (09:43)
[2018-07-29] MEDS ORDERED: MAGNESIUM SULFATE/D5W 1 GM/100 ML RTUPB IV ONE (09:43)
[2018-07-29] MEDS ORDERED: METOCLOPRAMIDE HCL INJ/PF 10 MG/2 ML SDV IV ONE (09:43)
[2018-07-29] MEDS ORDERED: DEXAMETHASONE SOD PHOS INJ 10 MG/1 ML VIAL IV ONE (09:43)
--- NOTE | 2018-07-29 09:43 | ER Document Report ---
ED General - General Chief Complaint: Headache Stated Complaint: HEADACHE, LIGHTHEADED, TINGLING IN HEAD Time Seen by Provider: 07/29/18 09:35 Primary Care Provider: ALEXA DESAI MD [NO LOCAL MD] - Follow up in 3-5 days (neurology ) ELINA MARIA MD [NO LOCAL MD] - Follow up in 3-5 days (neurology ) Notes: Patient is a 33-year-old male with history of migraines that presents to the emergency department for chief complaint of headache patient reports his been having a frontal headache for the past 5 days, with some tingling over the left side of his head, which is typical for his migraines has been having them for very long time over the course of his life. He states this once is been going on longer than usual, he does not have any home medications, with the exception of [id number] Motrin, without much relief of the pain. He states this is not the worst headache he has had, and had similar to his prior migraines since built up over the course of 5 days. He currently rates his headache as a 7 out of 10. Past Medical History: Migraine headaches Past Surgical History: Knee surgery, hand surgery Social History: Admits to smoking cigarettes, denies alcohol or drug use. Family History: Reviewed and noncontributory for presenting illness Allergies: Reviewed, see documented allergy list. REVIEW OF SYSTEMS: Other than noted above, the 12 point review of systems was reviewed with the patient and were negative, all pertinent findings are included in the HPI. PHYSICAL EXAMINATION: Vital signs reviewed, nursing noted reviewed. GENERAL: Well-appearing, well-nourished and in no acute distress. HEAD: Atraumatic, normocephalic. EYES: Eyes appear normal, extraocular movements intact, sclera anicteric, conjunctiva are normal. ENT: nares patent, oropharynx clear without exudates. Moist mucous membranes. NECK: Normal range of motion, supple without lymphadenopathy LUNGS: Breath sounds clear to auscultation bilaterally and equal. No wheezes rales or rhonchi. HEART: Regular rate and rhythm without murmurs ABDOMEN: Soft, nontender, normoactive bowel sounds. No rebound, guarding, or rigidity. No masses appreciated. EXTREMITIES: Nontender, good range of motion, no pitting or edema. NEUROLOGICAL: No focal neurological deficits. Moves all extremities spontaneously Motor and sensory grossly intact on exam. PSYCH: Normal mood, normal affect. SKIN: Warm, Dry, normal turgor, no rashes or lesions noted on exposed skin TRAVEL OUTSIDE OF THE [place] IN LAST 30 DAYS: No - Related Data Allergies/Adverse Reactions: duloxetine HCl [From Cymbalta] Allergy (Verified 07/29/18 09:25) Past Medical History - Social History Smoking Status: Current Every Day Smoker Family History: None Patient has suicidal ideation: No Patient has homicidal ideation: No - Past Medical History Cardiac Medical History: Reports: Hx Coronary Artery Disease, Hx Heart Attack, Hx Hypercholesterolemia, Hx Hypertension Pulmonary Medical History: Reports: Hx Pneumonia - hx of Denies: Hx Asthma, Hx Bronchitis, Hx COPD, Hx Tuberculosis Neurological Medical History: Reports: Hx Migraine. Denies: Hx Cerebrovascular Accident, Hx Seizures Renal/ Medical History: Denies: Hx Peritoneal Dialysis GI Medical History: Musculoskeletal Medical History: Reports Hx Arthritis - mild ankles and knees Psychiatric Medical History: Reports: Hx Anxiety, Hx Attention Deficit Hyperactivity Disorder, Hx Bipolar Disorder, Hx Depression Infectious Medical History: Past Surgical History: Reports: Hx Orthopedic Surgery - Left knee surgery WITH MENISCUS AND ACL REPAIR, right hand surgery. Denies: Hx Pacemaker - Immunizations Immunizations up to date: Yes Hx Diphtheria, Pertussis, Tetanus Vaccination: Yes - 2007 Physical Exam - Vital signs Vitals: Resp Pulse Ox 18 97 07/29/18 10:00 07/29/18 10:00 Course - Re-evaluation Re-evalutation: Patient seen and examined vital signs reviewed. Patient was evaluated and treated as appropriate for the patient's presenting symptoms and complaint, with consideration of any critical or life threatening conditions that may be associated with their obtained history and exam as noted above. Patient was treated with a cocktail of medications including Toradol, Decadron, IV magnesium, IV Reglan and IV fluids The patient was re-evaluated and was improved, stating that his headache was essentially resolved completely Evaluation was most consistent with headache, most likely migraine headache, given patient's history, and pattern of headache as it was slowly on onset and progressive over time, and waxing and waning. We will give the patient a pr escription for Fioricet, refer to neurology as outpatient. Plan of care was discussed with the patient at this point, after careful consideration I feel that that patient can be discharged from the emergency department, the patient was educated treatments and reasons to return to the emergency department based on their presumed diagnosis as noted above, they were advised to followup with a primary care physician in 2-3 days. Patient was agreeable to plan of care. *Note is created using voice recognition software and may contain spelling, syntax or grammatical errors. - Vital Signs Vital signs: Temp Pulse Resp BP Pulse Ox 98.9 F 75 20 121/74 100 07/29/18 11:11 07/29/18 11:11 07/29/18 11:11 07/29/18 11:11 07/29/18 11:11 Discharge - Discharge Clinical Impression: Headache Qualifiers: Headache type: unspecified Headache chronicity pattern: unspecified pattern Intractability: not intractable Qualified Code(s): R51 - Headache Condition: Stable Disposition: HOME, SELF-CARE Instructions: Headache ([facility]) Additional Instructions: Please follow-up with neurology, also listed a primary care physician if you need one as well, please take the medication only as needed for headaches, you can take 1-2 tablets every 6 hours, this medication can cause drowsiness, so avoid any driving if you are taking it. Prescriptions: Butalb/Acetaminophen/Caffeine [Fioricet (50-325-40 mg) Tablet] 1 tab PO Q6H PRN #15 tab PRN Reason: headache Forms: Return to Work Referrals: ELINA MARIA MD [NO LOCAL MD] - Follow up in 3-5 days (neurology ) ALEXA DESAI MD [NO LOCAL MD] - Follow up in 3-5 days (neurology )
[2018-07-29 11:06] VITALS: BP 121/74
== END 2018-07-29 11:12 | disposition home or self-care (01) ==
LOC: ER 09:21
DX: R51 Headache (principal); R20.0 Anesthesia of skin; F17.210 Nicotine dependence, cigarettes, uncomplicated; I25.10 Atherosclerotic heart disease of native coronary artery without angina pectoris; I25.2 Old myocardial infarction; I10 Essential (primary) hypertension
CPT/HCPCS: 99283; 96375; 96365; J1885; J2765; J3475; J7030; J1100

== ENCOUNTER 2019-03-30 16:13 | Emergency (ER) | payer OTHER, MEDICAID ==
[2019-03-30 16:19] VITALS: BP 147/84
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
[2019-03-30] MEDS ORDERED: KETOROLAC TROMETHAMINE 60 MG/2 ML SDV IM ONE (16:27)
[2019-03-30] MEDS ORDERED: DEXAMETHASONE SOD PHOS INJ 10 MG/1 ML VIAL IM ONE (16:27)
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
[2019-03-30] MEDS ORDERED: CYCLOBENZAPRINE HCL 10 MG TABLET PO ONE (17:31)
== END 2019-03-30 18:03 | disposition home or self-care (01) ==
LOC: ER 16:13
DX: M54.42 Lumbago with sciatica, left side (principal); M54.41 Lumbago with sciatica, right side; M54.9 Dorsalgia, unspecified; M79.10 Myalgia, unspecified site; V49.50XA Passenger injured in collision with unspecified motor vehicles in traffic accident, initial encounter; F17.210 Nicotine dependence, cigarettes, uncomplicated; Z88.8 Allergy status to other drugs, medicaments and biological substances
CPT/HCPCS: 99283; 96372; 72110; 72070; J1885; J1100

== ENCOUNTER 2019-04-05 10:57 | Emergency (ER) | payer OTHER, MEDICAID ==
[2019-04-05] MEDS ORDERED: LIDOCAINE 5% (700 MG) TRANSDERMAL ADH..PATCH TP ONE (11:12)
[2019-04-05] MEDS ORDERED: KETOROLAC TROMETHAMINE 60 MG/2 ML SDV IM ONE (11:12)
[2019-04-05] MEDS ORDERED: DEXAMETHASONE SOD PHOS INJ 10 MG/1 ML VIAL IM ONE (11:12)
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
[2019-04-05 11:58] VITALS: BP 131/91
== END 2019-04-05 11:53 | disposition home or self-care (01) ==
LOC: ER 10:57
DX: M54.5 Low back pain (principal); M25.551 Pain in right hip; F17.200 Nicotine dependence, unspecified, uncomplicated; I25.10 Atherosclerotic heart disease of native coronary artery without angina pectoris; E78.00 Pure hypercholesterolemia, unspecified; I10 Essential (primary) hypertension; I25.2 Old myocardial infarction
CPT/HCPCS: 99283; 96374; 96375; J1885; J1100

== ENCOUNTER 2019-11-21 08:13 | Emergency (ER) | payer MEDICAID ==
[2019-11-21 08:52] VITALS: BP 136/83
[2019-11-21] MEDS ORDERED: ONDANSETRON HCL INJ/PF 4 MG/2 ML SDV IV ONE (09:59)
[2019-11-21] MEDS ORDERED: NORMAL SALINE 1000 ML 1,000 ML IV ONE (09:59)
--- NOTE | 2019-11-21 10:00 | ER Document Report ---
ED General - General Chief Complaint: Headache Stated Complaint: HEADACHE,NAUSEA,VOMITING Time Seen by Provider: 11/21/19 09:30 Mode of Arrival: Ambulatory Information source: Patient Notes: 34-year-old man presents to the emergency department with a complaint of feeling poorly since Thursday. Nausea and vomiting with episodic diarrhea. He has also been working outside in has gotten heat related symptoms with dizziness and syncopal episode this morning. He states that he is feeling a little better now, he was brought to the hospital by EMS and received some IV fluids in route. TRAVEL OUTSIDE OF THE [place] IN LAST 30 DAYS: No - Related Data Allergies/Adverse Reactions: duloxetine HCl [From Cymbalta] Allergy (Verified 03/30/19 16:18) Past Medical History - Social History Smoking Status: Unknown if Ever Smoked Family History: None, Reviewed & Not Pertinent - Past Medical History Cardiac Medical History: Reports: Hx Coronary Artery Disease, Hx Heart Attack, Hx Hypercholesterolemia, Hx Hypertension Pulmonary Medical History: Reports: Hx Pneumonia - hx of Denies: Hx Asthma, Hx Bronchitis, Hx COPD, Hx Tuberculosis Neurological Medical History: Reports: Hx Migraine. Denies: Hx Cerebrovascular Accident, Hx Seizures Renal/ Medical History: Denies: Hx Peritoneal Dialysis GI Medical History: Musculoskeletal Medical History: Reports Hx Arthritis - mild ankles and knees, Reports Hx Musculoskeletal Deformity, Reports Hx Musculoskeletal Trauma Psychiatric Medical History: Reports: Hx Anxiety, Hx Attention Deficit Hyperactivity Disorder, Hx Bipolar Disorder, Hx Depression Traumatic Medical History: Reports: Hx Fractures - hand Infectious Medical History: Past Surgical History: Reports: Hx Orthopedic Surgery - Left knee surgery WITH MENISCUS AND ACL REPAIR, right hand surgery. Denies: Hx Pacemaker - Immunizations Immunizations up to date: No Hx Diphtheria, Pertussis, Tetanus Vaccination: No - 2007 Review of Systems - Review of Systems Notes: Constitutional: HPI HENT: Negative for sore throat. Eyes: Negative for visual changes. Cardiovascular: Negative for chest pain. Respiratory: Negative for shortness of breath. Gastrointestinal: Nausea Genitourinary: Negative for dysuria. Musculoskeletal: Negative for back pain. Skin: Negative for rash. Neurological: Negative for headaches, weakness or numbness. Physical Exam - Vital signs Vitals: Temp Pulse Resp BP Pulse Ox 98.1 F 69 16 136/83 H 97 11/21/19 08:39 11/21/19 08:39 11/21/19 08:39 11/21/19 08:39 11/21/19 08:39 - Notes Notes: PHYSICAL EXAMINATION: Physical Exam: General: Well-nourished well-developed 34-year-old male in no acute distress HEENT: NC/AT, pupils equal round and reactive to light, MM moist,nares clear, oropharynx clear, airway patent Neck: supple, no adenopathy, no masses. Good range of motion Lungs: clear, no wheezing, no rales no rhonchi CVS: Regular rate and rhythm no murmur gallop or rub Abdomen: Soft, active, nontender, no masses, no hepatosplenomegaly Ext: No edema, clubbing or cyanosis. Neuro: Alert and responsive, moving all 4 extremities on command, cranial nerves intact, no focal findings Skin: Intact no open lesions, no rash PSYCH: Normal mood, normal affect. Course - Re-evaluation Re-evalutation: 11/21/19 11:36 Received a Zofran. According to the nurse stated that he was feeling better and walked out. - Vital Signs Vital signs: Temp Pulse Resp BP Pulse Ox 98.1 F 69 16 136/83 H 97 11/21/19 08:39 11/21/19 08:39 11/21/19 08:39 11/21/19 08:39 11/21/19 08:39 Discharge - Discharge Clinical Impression: Dizziness Nausea and vomiting Qualifiers: Vomiting type: unspecified Vomiting Intractability: unspecified Qualified Code(s): R11.2 - Nausea with vomiting, unspecified Condition: Good Disposition: AGAINST MEDICAL ADVICE
== END 2019-11-21 10:45 | disposition left against medical advice (07) ==
LOC: ER 08:13
DX: R42 Dizziness and giddiness (principal); R11.2 Nausea with vomiting, unspecified; I25.10 Atherosclerotic heart disease of native coronary artery without angina pectoris; E78.00 Pure hypercholesterolemia, unspecified; I10 Essential (primary) hypertension; I25.2 Old myocardial infarction
CPT/HCPCS: 99284

== ENCOUNTER 2020-04-05 01:13 | Emergency (ER) | payer OTHER, MEDICAID ==
[2020-04-05] MEDS ORDERED: LIDOCAINE 1% INJ-PF (10 MG/ML) 30 ML SDV INJ ONE (02:31)
[2020-04-05] MEDS ORDERED: OXYCODONE-ACETAMINOPHEN 5-325 MG TABLET PO ONE ×2 (02:31→04:56)
[2020-04-05] MEDS ORDERED: DIPH/PERTUSS(ACELL)/TETANUS VAC/PF 0.5 ML SYR (>=10YO) IM ONE (02:31)
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
[2020-04-05 05:28] VITALS: BP 120/73
== END 2020-04-05 05:34 | disposition home or self-care (01) ==
LOC: ER 01:13
DX: S01.511A Laceration without foreign body of lip, initial encounter (principal); S16.1XXA Strain of muscle, fascia and tendon at neck level, initial encounter; S63.601A Unspecified sprain of right thumb, initial encounter; M54.9 Dorsalgia, unspecified; R51.9 Headache, unspecified; M54.2 Cervicalgia; M79.641 Pain in right hand; M54.5 Low back pain; R05 Cough; V87.7XXA Person injured in collision between other specified motor vehicles (traffic), initial encounter; F17.200 Nicotine dependence, unspecified, uncomplicated; F12.10 Cannabis abuse, uncomplicated; I25.2 Old myocardial infarction; Z88.8 Allergy status to other drugs, medicaments and biological substances
CPT/HCPCS: 99285; 90471; 71045; 73130; 72110; 72070; 70450; 70486; 72125; 90715; 12011; 29125; J3490